=== PATIENT | female | born 1980 | race Caucasian/White ===

== ENCOUNTER 2022-11-26 20:21 | Emergency (ER) | payer OTHER ==
[2022-11-26 20:37] VITALS: BP_SYST 136
[2022-11-26 21:23] LABS: BASOPHILS % (AUTO) 0.5 % (0.0-2.0); EOSINOPHILS # (AUTO) 0.1 K/uL (0.0-0.4); EOSINOPHILS % (AUTO) 1.1 % (0.0-4.0); HEMATOCRIT 38.1 % (36-48); HEMOGLOBIN 12.8 g/dL (12.0-16.0); LYMPHOCYTES # (AUTO) 1.9 K/uL (1.0-5.5); LYMPHOCYTES % (AUTO) 20.2 % (20.5-51.5); MEAN CORPUSCULAR HEMOGLOBIN 28 pg (27-31); MEAN CORPUSCULAR HGB CONC 34 % (32-36); MEAN CORPUSCULAR VOLUME 82 fL (79.0-98.0); MONOCYTES # (AUTO) 0.5 K/uL (0.0-1.0); MONOCYTES % (AUTO) 4.9 % (1.7-9.3); NEUTROPHILS # (AUTO) 6.9 K/uL (1.8-7.7); NEUTROPHILS % (AUTO) 73.3 % (40.0-70.0); PLATELET COUNT (AUTO) 251 K/uL (130-430); RED BLOOD CELL COUNT(AUTO) 4.63 MIL/uL (4.2-6.2); RED CELL DISTRIBUTION WIDTH 14.1 % (9.0-15.0); WHITE BLOOD COUNT (AUTO) 9.4 K/uL (4.8-10.8)
[2022-11-26 21:30] LABS: ANION GAP 8 (5-15); CALCIUM 8.8 mg/dL (8.4-11.0); CHLORIDE 99 mmol/L (98-107); CREATININE 0.85 mg/dL (0.55-1.30); GFR AFRICAN AMERICAN 95 mL/min (>90); GLUCOSE 274 mg/dL (70-99); UREA NITROGEN, BLOOD 14 mg/dL (8-21)
[2022-11-26 21:31] LABS: ACETONE, SERUM NEGATIVE (NEGATIVE)
[2022-11-26 21:44] LABS: ALANINE AMINOTRANSFERASE 38 U/L (12-78); ALBUMIN 3.6 g/dL (3.4-4.8); ASPARTATE AMINOTRANSFERASE 18 U/L (10-37); THYROID STIMULATING HORMONE 1.04 uIu/mL (0.34-4.82); TOTAL BILIRUBIN 0.5 mg/dL (0.0-1.0)
--- NOTE | 2022-11-26 21:48 | NUR ---
patient placed in room 4. will give report to luis feng
--- NOTE | 2022-11-26 22:25 | NUR ---
ER Dr.DE HOLBROOK at bedside examining patient.
--- NOTE | 2022-11-26 22:30 | NUR ---
PT BIB FAMILY MEMBER FROM HOME, AMBULATED TO BED 8. PT A&Ox4, ABLE TO MAKE NEEDS KNOWN. PT C/O OF PALPITATIONS. PT DENIES PAIN AT THIS TIME. PT DENIES N/V/D, SOB AND CHEST PAIN. PT DENIES FEVER/CHILLS. PT HAS A HISTORY OF TYPE 2 DIABETES. PT NON-COMPLIANT WITH MEDICATION REGIMEN. SAFETY PRECAUTIONS IN PLACE.
--- NOTE | 2022-11-26 22:30 | NUR ---
report given to nando freeman
[2022-11-27 00:04] VITALS: BP_SYST 120
--- NOTE | 2022-11-27 00:04 | NUR ---
Patient given written and verbal discharge instructions and verbalizes understanding. ER DR MARIN discussed with patient the results and treatment provided. Patient in stable condition. ID arm band removed. Patient educated on pain management and to follow up with PMD. Pain Scale 0/10. Opportunity for questions provided and answered.
== END 2022-11-27 00:04 | disposition home or self-care (01) ==
LOC: SED 20:21
DX: R00.2 Palpitations (principal); E11.65 Type 2 diabetes mellitus with hyperglycemia; R73.9 Hyperglycemia, unspecified; Z79.899 Other long term (current) drug therapy
CPT/HCPCS: 36415; 71045; 80053; 82009; 82962; 83880; 84439; 84443; 84484; 85025; 99284